=== PATIENT | female | born 1970 | race Caucasian/White ===

== ENCOUNTER 2016-08-13 14:44 | Inpatient (IN) | payer OTHER ==
--- NOTE | ~2016-08-13 | IDS ---
Interim Discharge Summary [facility] [address] [place]. [address] NAME: SHIRA CORDERO : 74 STATUS : ADM IN [facility]#: [id number] AGE: 45 ADM/REG DATE : 08/13/16 MR#: [id number] REPORT SERV DATE: 08/20/16 DICTATED BY: JR. BOB WILLIAM JOHN DATE: 08/20/16 REPORT STATUS : Draft TRANSCRIBED BY: MODL DATE: 08/20/16 ADMISSION DATE: 08/13/2016 DISCHARGE DATE: The patient was transferred to the floor on 08/15 after admission to the intensive care unit, therefore this summary covers the time period from 08/15 through 08/20. WORKING DIAGNOSES: 1. Pericardial effusion, status post pericardial window. Drain removed on 08/20. 2. Severe hypothyroidism with myxedema. 3. Systolic heart failure with an ejection fraction of 25% to 30% on transthoracic echocardiogram, intraoperative KACI showed normal function. 4. Acute on chronic respiratory failure on 2.5 L oxygen by nasal cannula. 5. Tobacco abuse. 6. Hirsutism. 7. Lice on admission. 8. Difficult social issues. OPERATIONS, PROCEDURES, AND TREATMENTS: Include, 1. Subxiphoid pericardial window with transesophageal echocardiogram by Dr. Gibson on 08/13. Transesophageal echo showed normal function with large posterior and lateral pericardial effusions. 2. Chest x-ray done 08/13 showed status post intubation with appropriate endotracheal tube position with internal jugular catheter on the left and continued cardiomegaly and perihilar edema with mild left basilar crater and right basilar atelectasis. 3. CT of the chest done 08/13 showed cardiomegaly with superimposed moderate to large pericardial effusion with asymmetric nodular and subtle patchy infiltrates in both upper and lower lobes suggesting asymmetric pulmonary edema versus asymmetric bilateral pneumonia. There is nonspecific hepatic steatosis. There was a 2.7 cm hypodense thickened lesion at the left adrenal gland suggestive of adrenal adenoma or adrenal myelolipoma. There is anasarca. There was enlarged main pulmonary artery measuring 3.[address] evidence of pulmonary arterial hypertension. There is diffuse beam hardening. 4. KUB done 08/14 showed a nasogastric tube in appropriate position. 5. Multiple followup chest x-rays. 6. CT of the abdomen and pelvis done 08/17 showed diffuse body wall edema, small amount of ascites, and minimal pleural effusions. The liver was enlarged at 24 cm in length. There was bilateral adrenal hypertrophy, right was 2.6 x 1.1 cm, left was 3.1 x 2.8 cm likely representing adenomas. There was no bowel obstruction. 7. Transthoracic echo done 08/17, which showed moderate left ventricular systolic function with an ejection fraction 25% to 30% with mild right ventricular systolic dysfunction. There was no significant valvular dysfunction. No previous study for comparison. CURRENT MEDICATIONS: Please see my daily progress note. CONSULTING PHYSICIAN: Dr. Gibson of Cardiology. Interim Discharge Summary [place] [id number] [place]. [address] NAME: SHIRA CORDERO : 74 STATUS : ADM IN [facility]#: [id number] AGE: 45 ADM/REG DATE : 08/13/16 MR#: [id number] REPORT SERV DATE: 08/20/16 DICTATED BY: JR. BOB WILLIAM JOHN DATE: 08/20/16 REPORT STATUS : Draft TRANSCRIBED BY: SHAYY DATE: 08/20/16 BRIEF SUMMARY OF HOSPITALIZATION: The patient is a 45-year-old female, transferred from [facility] on 08/13 after being found to have a large pericardial effusion, transferred for consideration of a pericardial window. The patient presented to [facility] with chief complaint of increased shortness of breath, hypoxia, hypertension. She was on CPAP, given Lasix and nitro paste, was seen by Cardiology. The patient has a known history of hypothyroidism, but had not taken her medications for over four years as she was unable to afford them. Upon transfer, the patient was diverted to the intensive care unit where she was on BiPAP, settings of 16/8, rate of 10, FiO2 40%. Heart rate 70, blood pressure 140/83, respiratory rate 16, temperature 97.9. The patient had cataracts bilaterally, right greater than the left. Lung had decreased breath sounds throughout. Heart sounds were muffled. She had massive edema and dry skin on her extremities. For complete details, please see Dr. Chary Ortiz's dictated consultation. DISCUSSION OF PROBLEM LIST: 1. Pericardial effusion-this is likely due to untreated hypothyroidism and possible systolic heart failure. She underwent a pericardial window by Dr. Gibson on 08/13. The drain was removed on 08/20 and the patient is ready for discharge from their point of view. 2. Severe hypothyroidism with myxedema. The patient was replaced initially with Cytomel. This has been transitioned to Synthroid in escalating doses. She is currently on 125 mcg orally per day. I would recommend continuing this dose and checking a thyroid- stimulating hormone in four weeks to assess for adequacy. 3. Systolic heart failure with ejection fraction 25%-30% seen on transthoracic echocardiogram. Intraoperative transesophageal echocardiogram noted normal function, therefore her true systolic function is difficult to transport specialist currently, which she has been started on lisinopril and is currently on 20 mg twice a day, also on Coreg and a 2 L fluid restriction. She has been getting diuresed 40 mg IV daily, which we will continue at this point as she continues to have massive edema and seems to be high risk for decompensation without inpatient diuresis. 4. As to the acute on chronic hypoxic respiratory failure, this is likely multifactorial. She does not have a history of smoking, however, is massively obese and likely has a restrictive lung disease from that, and in addition, she had a pericardial window and also has severe hypothyroidism and likely has some component of volume overload affecting her lungs. We will plan to wean her oxygen and check an exercise desaturation study. 5. As to hirsutism, CT of the abdomen and pelvis was done looking for adrenal hyperplasia, which was not demonstrated. This likely represents polycystic ovarian syndrome and might benefit from metformin at some point. 6. 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 She is from her and is living with her sister. Apparently, she sleeps on a chair in the kitchen. She has no insurance and no source of payment for any followup care. I have worked with the hospice case manager and she has applied for assistance. Obviously this makes discharge with oxygen difficult and/or impossible, therefore continued diuresis and respiratory optimization is critical. For today's exam, please see daily progress note and my partner will assume care of this patient in the morning. Interim Discharge Summary [place] [id number] [facility] [address] NAME: SHIRA CORDERO : 74 STATUS : ADM IN [facility]#: [id number] AGE: 45 ADM/REG DATE : 08/13/16 MR#: [id number] REPORT SERV DATE: 08/20/16 DICTATED BY: JR. BOB WILLIAM JOHN DATE: 08/20/16 REPORT STATUS : Draft TRANSCRIBED BY: SHAYY DATE: 08/20/16 WJF/SHAYY Sherif Bob Jr, MD / [id number] CC: Sherif Bob Jr, MD
--- NOTE | ~2016-08-13 | OP ---
Record Of Operation [facility] [address] [place]. [address] NAME: SHIRA CORDERO : 74 STATUS : ADM IN [facility]#: [id number] AGE: 45 ADM/REG DATE : 08/13/16 MR#: [id number] REPORT SERV DATE: 08/14/16 DICTATED BY: LEANDRO TIDWELL DATE: 08/13/16 REPORT STATUS : Draft TRANSCRIBED BY: MODL DATE: 08/13/16 DATE OF PROCEDURE: 08/13/2016 INDUSTRY SEGMENT SPECIALIST: Lopez Tidwell. PREOPERATIVE DIAGNOSES: 1. Pericardial effusion. 2. Early cardiac tamponade by echo. 3. Hypertension. 4. Hypothyroidism. POSTOPERATIVE DIAGNOSES: 1. Pericardial effusion. 2. Early cardiac tamponade by echo. 3. Hypertension. 4. Hypothyroidism. OPERATION PROCEDURE PERFORMED: 1. Subxiphoid pericardial window. 2. Transesophageal echo. COMPLICATIONS: None. ESTIMATED BLOOD LOSS: Minimal. SPECIMEN REMOVED: Pericardium and pericardial fluid, total of 610 mL of clear straw-colored pericardial fluid. TUBES AND DRAINS: A 24-Ugandan Bethel to the pericardial space. INTRAOPERATIVE FINDINGS: Fluid 610 mL. No blood. No staining of the pericardium. No studding of the pericardium. Totally normal appearing epicardial fat pad that could be seen through a very small pericardial incision. Transesophageal echo showed normal function with a large posterior and lateral pericardial effusion. INDICATIONS FOR PROCEDURE: Ms. Cordero is a 45-year-old, transferred from an outside facility, history of hypothyroidism and presented to the outside hospital in respiratory distress, was transferred on BiPAP, appeared to very in early signs of myxedema crisis, however, did not have hypotension. When I saw her, she was confused, unable to answer questions appropriately, but did have normal vital signs. Risks, benefits, and alternatives were discussed over the phone with her sister and she was taken to the operating room. DESCRIPTION OF PROCEDURE: The patient was brought to the operating room and placed supine on the operating room table. After satisfactory induction of general endotracheal anesthesia, a transesophageal echo probe was placed by the Anesthesia Service, which revealed the above findings. At this point, decision was made to attempt a subxiphoid window, and if unable to Record Of Operation [place] [id number] [facility] [place]. [address] NAME: SHIRA CORDERO : 74 STATUS : ADM IN PAT#: [id number] AGE: 45 ADM/REG DATE : 08/13/16 MR#: [id number] REPORT SERV DATE: 08/14/16 DICTATED BY: LEANDRO TIDWELL DATE: 08/13/16 REPORT STATUS : Draft TRANSCRIBED BY: SHAYY DATE: 08/13/16 clear the effusion, to go to a lateral approach. She was prepped and draped in the usual sterile fashion. A 6 cm incision was made over the xiphoid. Skin and subcutaneous tissues were divided. The fascia was opened in the midline over the xiphoid and the linea alba. A finger retractor was placed under the xiphoid and elevated. The chest fatty tissue was swept off the anterior-inferior surface of the pericardium until the pericardium was encountered. It was tense, somewhat bulging. A small incision was made in the pericardium and 610 mL of fluid was evacuated. A quarter-sized piece of pericardium was then excised and sent for pathologic analysis. The incision was widened such that a malleable retractor could be placed and then used to pull the diaphragmatic surface of the pericardium down. A 24-Ugandan Bethel was then placed into the pericardium, exteriorized and anchored. The linea alba was then closed. The fascia was then closed with a running #1 StrataFix, subcutaneous tissues closed using 2-0 Vicryl, and the skin closed using 3-0 Vicryl. Dermabond was applied and the patient was transferred to the CVICU in critical, stable condition, intubated. Cindy/SHAYY Leandro Tidwell MD / [id number] CC: Leandro Tidwell MD
--- NOTE | ~2016-08-13 | CN ---
Consultation Report [facility] [address] [place]. [address] NAME: SHIRA CORDERO : 74 STATUS : ADM IN PAT#: [id number] AGE: 45 ADM/REG DATE : 08/13/16 MR#: [id number] REPORT SERV DATE: 08/13/16 DICTATED BY: PORTIA ORTIZ DATE: 08/13/16 REPORT STATUS : Draft TRANSCRIBED BY: MODL DATE: 08/13/16 CONSULTATION DATE OF CONSULTATION: HISTORY OF PRESENT ILLNESS: This is a 45-year-old patient I was asked to see by Dr. Gibson initially for BiPAP management. Hospitalist Service was consulted for medical management but then the entire management of this patient was deferred to the Critical Care Service by the hospitalist. The patient apparently was transferred here from [facility] today after she was found to have a large pericardial effusion and is here currently for consideration of placement of a pericardial window. The patient presented to [facility] today with a chief complaint of increasing shortness of breath, was found to be hypoxic and hypertensive, started on CPAP, given Lasix and nitroglycerin paste. She was seen by Cardiology over at [facility] who after seeing her TSH felt that much of her issues may be related to her high TSH of 122. She has known history of thyroid issues; however, she has not seen a doctor for the last four years and has not been taking thyroid medication or any other kind of medication for several years now. She has had no nausea, vomiting, fevers, chills, abdominal pain. ALLERGIES: SHE HAS NO KNOWN DRUG ALLERGIES. MEDICATIONS: At home are none. On transfer to [facility], the patient is on Synthroid, vitamin B12, subcu Lovenox, Lasix, DuoNeb, levothyroxine 25 mcg orally. She is on lisinopril 10 mg orally and nicotine patch, nitroglycerin transdermal ointment, and oral Protonix, p.r.n. MiraLAX. PAST MEDICAL HISTORY: Significant for previous known history of hypertension. No known coronary artery disease. Fluid retention, CHF, obesity, hypothyroidism. There is no other known past medical history. SOCIAL HISTORY: The patient lives with her sister and her mother. The patient tells me she has three children, but we will need to confirm that with her sister. She has been smoking for many years, two packs a day and has not quit. FAMILY HISTORY: Her mother is still living and has COPD and diabetes mellitus. She is not aware of any health issues with her sister. REVIEW OF SYSTEMS: 12-point review of systems was done and pretty much is as per history of present illness. The patient states that she has not been gaining weight, in fact she has been losing weight. Somewhat difficult to assess that. There has been no problems with appetite, constipation, nausea, vomiting, bloody stools. The patient does have cataracts and has had difficulty seeing. Respiratory bull, she has had no productive cough or hemoptysis. Cardiovascular review of systems, no chest pain, no palpitations. She does admit to increased swelling of the legs, but no syncope. GI review of systems, no nausea, vomiting, diarrhea. No bloody Consultation Report [place] [id number] [facility] [place]. [address] NAME: SHIRA CORDERO : 74 STATUS : ADM IN LOCATED [facility]IN [facility]#: [id number] AGE: 45 ADM/REG DATE : 08/13/16 MR#: [id number] REPORT SERV DATE: 08/13/16 DICTATED BY: PORTIA ORTIZ DATE: 08/13/16 REPORT STATUS : Draft TRANSCRIBED BY: SHAYY DATE: 08/13/16 stools. review of systems is unremarkable. Skin; the patient denies any rashes but does complaint of dryness of the skin. Otherwise, a 12-point review of systems is unremarkable. PHYSICAL EXAMINATION: VITAL SIGNS: She is currently on BiPAP at settings of 16/8, rate of 10, FiO2 of 40%. Her heart rate is 70, blood pressure 140/83, and respiratory rate is 16 with a temp of 97.9. The skin is warm to touch. GENERAL: The patient is in no apparent distress. She is responsive. She has a BiPAP mask in place. SKIN: The skin is notable for very dry crusted skin on the lower extremities. She has intertrigo underneath both breasts, and left groin is worse than the right groin. Skin has a somewhat doughy texture to it. HEENT: Notable for cataracts bilaterally, right greater than left. Difficult to evaluate pupillary size. The one on the right is pretty dense. She has some hair loss notable for her scalp. Oral mucosa poor dentition. NECK: Large. JVD cannot be adequately evaluated. She is hirsute and has quite a bit of facial hair particularly on her chin. LUNGS: Coarse throughout decreased at the bases. CARDIAC: Heart sounds are difficult to hear, but could not detect any murmurs and the heart rate is regular. BREASTS: Symmetrical without masses. Intertrigo is noted. ABDOMEN: Obese, nondistended, nontender. Bowel sounds are diminished. There is no organosplenomegaly appreciated. Intertrigo as mentioned above. Whittington catheter is in place. RECTAL AND GENITAL: Deferred. EXTREMITIES: Lower extremities are notable for edema, extreme dryness, and scaling of the lower extremities bilaterally. Pulses are markedly diminished in the lower extremities. Upper extremities radial and brachial are at least 1+. NEUROLOGIC: Cranial nerves 2 through 12 are grossly intact. Motor and sensory are intact. Deep tendon reflexes could not be evaluated. Grossly, her neurologic exam is nonfocal. ABG done here showed a pH of 7.40, pCO2 of 45, PO2 of 81, bicarbonate of 27, O2 saturation of 95% on the above vent settings. Chest x-ray shows enlarged cardiac silhouette and mild pulmonary vascular congestion. Lab work from [facility] shows a white cell count of 5.4, hemoglobin of 10, hematocrit of 31, platelet count of 115. Sodium of 138, potassium of 3.8, chloride of 100, creatinine of 1.07, calcium of 9.3, bicarbonate of 26. Vitamin B12 was low at 170, iron is 23, TIBC is 294. Iron saturation is 8%. Ferritin is 1285. CK is 122. Glycosylated hemoglobin is 5.4, glucose is 108. LFTs are within normal limits. Lactic acid level is 1.7. TSH is 123. MCV is 99.7. Echocardiogram done at [facility] shows an ejection fraction of 54%, large pericardial effusion posteriorly 2.1 cm. ASSESSMENT AND PLAN: 1. This is a 45-year-old woman who has not been seen by a physician in last four years who presents to an outlying hospital with increasing shortness of breath, hypoxic respiratory failure, found to have a large pericardial effusion and profound hypothyroidism. The patient has been transferred here for placement of pericardial Consultation Report [address] [address] NAME: SHIRA CORDERO : 74 STATUS : ADM IN LOCATED [facility]IN [facility]#: [id number] AGE: 45 ADM/REG DATE : 08/13/16 MR#: [id number] REPORT SERV DATE: 08/13/16 DICTATED BY: PORTIA ORTIZ DATE: 08/13/16 REPORT STATUS : Draft TRANSCRIBED BY: SHAYY DATE: 08/13/16 window. We were asked initially to see her for BiPAP management and current BiPAP settings are adequate. More than likely, the patient will be intubated for the pericardial window. 2. Hypertension. We can continue the nitroglycerin paste, lisinopril, and maybe add p.r.n. hydralazine if needed. 3. Severe hypothyroidism. We will change the Synthroid to IV. We will need to check a free T4 and free T3, and may need to increase the dose of Synthroid and add thyroid. Also check a cortisol level. It appears that the patient is not diabetic and has not run a high glucose and glycosylated hemoglobin levels at [facility] was 5.4. 4. Nicotine abuse, status of COPD whether she has it or not is uncertain. She currently is on a nicotine patch and we will continue DuoNebs. 5. She has intertrigo. We will apply Misha cream, and InterDry were indicated. 6. Vitamin B12 deficiency. Continue B12 shots. 7. Thrombocytopenia and more than likely anemia of chronic disease. We will follow a heme test stools. 8. Anasarca more than likely multifactorial and most definitely secondary to poorly controlled thyroid function. 9. Obesity hypoventilation syndrome, probable obstructive sleep apnea. Continue BiPAP. 10.Deep vein thrombosis prophylaxis will be initially with SCDs. We will follow the platelet count closely. We will start subcu heparin or Arixtra once pericardial window is placed. 11.GI prophylaxis will be with Protonix. The patient is in critical condition and is at risk for further deterioration hemodynamically as well as respiratory and cardiac bull and will require frequent monitoring and vent changes once she is intubated. Total critical care time spent with this patient commenced at 7:10 p.m. and ended at 8:10 p.m. for a total of 60 minutes of critical care time. STEVEN/SHAYY Portia Ortiz M.D. / [id number] CC: Laendro Gibson MD
--- NOTE | ~2016-08-13 | DS ---
Discharge Summary [facility] [address] [place]. [address] NAME: SHIRA CORDERO : 74 STATUS : DIS IN PAT#: [id number] AGE: 45 ADM/REG DATE : 08/13/16 MR#: [id number] REPORT SERV DATE: 08/22/16 DICTATED BY: CORI ANGULO DATE: 08/21/16 REPORT STATUS : Draft TRANSCRIBED BY: MODL DATE: 08/21/16 ADMISSION DATE: 08/13/2016 DISCHARGE DATE: 08/21/2016 DISCHARGE DIAGNOSES: 1. Pericardial effusion status post drain and drain is removed. 2. Severe hypothyroidism with myxedema, started on the Synthroid 125 mcg once a day. 3. Tobacco abuse. 4. Morbid obesity. 5. Hypertension. 6. Uncontrolled hypothyroidism. 7. Social difficulty. 8. Severe left ventricular dysfunction at 25-30% ejection fraction with mild right ventricular dysfunction on the echocardiogram. HISTORY OF PRESENT ILLNESS: This is a 45-year-old female patient, who transferred from [facility] on 08/13/2016 after being found to have large pericardial effusion in order to obtain a Cardiac Risk Surgery consultation. Please see dictated H and P. HOSPITAL COURSE: Please see dictated interim discharge summary done by Dr. Bob. I am taking care of this patient on the day of discharge. She had a surgical pericardial effusion removal and the drain is also removed. She was put on a diuretic treatment. She was found to have severe hypothyroidism with myxedema. Her treatment of Synthroid was initiated from this hospitalization, currently dose is 125 mcg once a day. She does also have systolic heart failure on the echocardiogram. She was put on the ROZINA inhibitor and beta jan and diuretic treatment for this heart failure in light of myxedema. Overall the patient improved and remained in stable condition stabilized. Maximized inpatient benefit. Main issue is myxedema and also her social issue. So, the case technician is deeply involved, to be taken care of her discharge medication and followup plan and also [facility] was arranged. DISCHARGE MEDICATIONS: 1. We will continue Synthroid 125 mcg once a day. 2. Lisinopril 20 mg once a day. 3. Coreg 6.25 mg twice a day. 4. Potassium 40 mEq once a day. Again Synthroid was started on this admission. FOLLOW-UP: The patient is to follow up with primary care physician. DISPOSITION: The patient is discharged to home. Discharge Summary [address] [address] NAME: SHIRA CORDERO : 74 STATUS : DIS IN PAT#: [id number] AGE: 45 ADM/REG DATE : 08/13/16 MR#: [id number] REPORT SERV DATE: 08/22/16 DICTATED BY: CORI ANGULO DATE: 08/21/16 REPORT STATUS : Draft TRANSCRIBED BY: SHAYY DATE: 08/21/16 TIME SPENT: More than 30 minutes. DICTATED BY: Olga Galeano/SHAYY Cori Angulo M.D. / [id number] CC: Sherif Bob Jr, MD
--- NOTE | ~2016-08-13 | HP ---
History And Physical [place] [id number] [facility] [place]. [address] NAME: SHIRA CORDERO : 74 STATUS : ADM IN PAT#: [id number] AGE: 45 ADM/REG DATE : 08/13/16 MR#: [id number] REPORT SERV DATE: 08/14/16 DICTATED BY: TOMI FIELD DATE: 08/13/16 REPORT STATUS : Draft TRANSCRIBED BY: MODL DATE: 08/13/16 DATE OF ADMISSION: 08/13/2016 REASON FOR ADMISSION: Pericardial effusion. HISTORY OF PRESENT ILLNESS: This is a 45-year-old, morbidly obese, female who has a history of high blood pressure and likely obstructive sleep apnea, but has not followed up with primary care provider in over four years. She lives at home with her mother and her sister, but says that she does not leave the house very much. She was brought to the emergency room at [facility] on 08/12/2016 with complaints of shortness of breath. She was found to have an elevated BNP with O2 saturations in the 50s. She was started on BiPAP and chest x-ray showed, what appeared to be, a very large heart. She was initially started on treatment for CHF exacerbation, but echocardiogram earlier today showed a normal ejection fraction with a large circumferential pericardial effusion, left atrial collapse concerning for early signs of tamponade, although her heart rate and blood pressure were stable. She was started on BiPAP intermittently, which per the nurse at [facility], she was requiring throughout most of the day. I spoke with Dr. Ayers, bench worker helper at [facility], regarding the case and he asked for cardiothoracic evaluation for pericardial window. The patient was transferred here and just arrived to the CV ICU. She was transferred on 4 L with O2 sats in the low to mid 90s. She has no complaints of shortness of breath or chest pain at this time. It is difficult to determine the baseline mentation of the patient although she seem to be alert and oriented x3. It is difficult to understand whether she ascertains everything that is going on with her. Currently there is no family present, but her vital signs are stable and she has no complaints. PAST MEDICAL HISTORY: High blood pressure, morbid obesity, obstructive sleep apnea, hypothyroidism, iron deficiency anemia, vitamin B12 deficiency, thrombocytopenia, and bilateral cataracts. PAST SURGICAL HISTORY: Denies any major surgeries. FAMILY HISTORY: Family history of COPD, colon cancer on her mother side, lung cancer on her father's side. SOCIAL HISTORY: About a quarter-pack per day for over 20 years. No alcohol abuse or use of illicit drugs. She says she lives at home with her mother and her sister, but she stays in her room most of the time. ALLERGIES: NO KNOWN DRUG ALLERGIES. HOME MEDICATIONS: She reports no home medications. REVIEW OF SYSTEMS: A 10-point review of systems was obtained, is negative other than HPI. PHYSICAL EXAMINATION: History And Physical [address] [place]. [address] NAME: SHIRA CORDERO : 74 STATUS : ADM IN [facility]#: [id number] AGE: 45 ADM/REG DATE : 08/13/16 MR#: [id number] REPORT SERV DATE: 08/14/16 DICTATED BY: TOMI FIELD DATE: 08/13/16 REPORT STATUS : Draft TRANSCRIBED BY: SHAYY DATE: 08/13/16 VITAL SIGNS: Temperature 98.8, heart rate 75, blood pressure 140/82, respiratory rate 20, and O2 saturation 95% on 4 L. White blood cell count 5.4, hemoglobin 10.4, hematocrit 32, platelets 115. Sodium 138, potassium 3.8, chloride 100, bicarbonate 26, BUN 10, creatinine 1.1, glucose 110. TSH 123. GENERAL: Obese, female, in no acute distress. Appears to be rather unkept. NEURO: Alert and oriented x3. Equal strength bilaterally. Pupils are round and reactive to light and accommodation. HEENT: Head, normocephalic and atraumatic. Sclerae clear. Lens cloudy, worse on the right. Facial hair on chin. CARDIAC: S1, S2 with no murmurs, rubs, or gallops. LUNGS: Coarse bilaterally with expiratory wheezes. Diminished bases. ABDOMEN: Obese, soft, nontender with active bowel sounds. EXTREMITIES: Free of cyanosis or clubbing. 1 to 2+ bilateral lower extremity edema. SKIN: Dry, scaly with decreased turgor. Multiple areas that appear to be dirty with dry, dirty scaling bilateral lower extremities. ASSESSMENT AND PLAN: This is a 45-year-old, morbidly obese, female who lives at home, but rarely leaves her house. She has not seen a primary care provider in over four years. She was admitted to [facility] yesterday with shortness of breath and elevated BNP. Echocardiogram showed a large circumferential pericardial effusion with early signs of tamponade and normal ejection fraction with stable vital signs. The patient was scheduled for a pericardial window and transferred to [facility] this evening. I discussed the risks and benefits of pericardial window with the patient and she is agreeable to proceed. It is difficult to ascertain whether or not she understands everything in regard to her diagnosis, but she is agreeable to undergo the procedure at this time. Her family apparently is en route to the hospital, but they are currently not here. We will go ahead and admit her as an inpatient for pericardial window and ask Pulmonary to see her for what was acute pulmonary insufficiency at [facility] and obstructive sleep apnea BiPAP management. We will also ask the hospitalist to see her for medical management of hypothyroidism and other medical problems for which she has not received care over the past several years. WOLF/SHAYY Tomi Field NP / [id number] CC: Leandro Gibson MD
[2016-08-13 19:29] LABS: BE (BASE EXCESS) 2.8 MEQ/L (0 +/- 2.5); CARBOXYHEMOGLOBIN 0.4 % (0-3); HCO3 (ACTUAL BICARBONATE) 27.9 MEQ/L (23-27); HEMOBLOGIN CONTENT 10.1 G/DL (12-16); INSTRUMENT SERIAL # 11843; METHEMOGLOBIN 0.3 % (0-3); O2 CONTENT 13.5 VOL% (18-24); PCO2 (CO2 TENSION) 45 MMHG (35-45); PO2 (O2 TENSION) 82 MMHG (79-93); SAMPLE Arterial; pH 7.41 (7.37-7.43)
[2016-08-13 19:30] LABS: ALLENS TEST Pos; BIPAP 16/8 cm.H2O; OPERATOR ID 23712
[2016-08-13 20:53] LABS: HEMATOCRIT 28.2 % (36.0-48.0); HEMOGLOBIN 9.2 g/dL (12.0-16.0); MEAN CORPUS HGB CONC 32.6 g/dL (32.0-36.0); MEAN CORPUSCULAR HEMOGLOB 32.5 pg (26.0-34.0); MEAN CORPUSCULAR VOLUME 99.6 fL (80-100); MEAN PLATELET VOLUME 9.9 fL (9.2-13.0); PLATELET COUNT 113 10/3/uL (150-400); RBC DISTRIBUTION WIDTH 17.3 % (12.0-16.0); RED CELL COUNT 2.83 10/6/uL (4.0-5.6); WHITE BLOOD CELLS 4.6 10/3/uL (4.5-10.5)
[2016-08-13 20:55] LABS: MANUAL DIFF YES %
[2016-08-13 21:04] LABS: INTERNATIONAL NORMAL RATI 1.1 UNITS (-); PROTIME (NOT ORD) 14.5 SEC (12.0-14.5)
[2016-08-13 21:15] LABS: BAND NEUTROPHILS 19 %; LYMPHOCYTES 5 %; LYMPHOCYTES ABSOLUTE (CALC) 0.23 10/3/uL (0.67-4.30); MONOCYTES 2 %; MONOCYTES ABSOLUTE (CALC) 0.09 10/3/uL (0.21-1.20); NEUTROPHILS ABSOLUTE (CALC) 4.28 10/3/uL (2.02-8.40); PLATELET ESTIMATE SLT DEC (ADEQUATE); SEGMENTED NEUTROPHIL (0) 74 %; TOTAL NUCLEATED CELLS 100
[2016-08-13 21:16] LABS: ANISOCYTOSIS 1+ (5-10/OIF) (0-5/OIF); MACROCYTES 1+ (5-10/OIF) (0-5/OIF)
[2016-08-13 21:29] LABS: GLYCOHEMOGLOBIN (HbA1c) 5.2 % (4.7-6.1)
[2016-08-13 21:59] LABS: A/G RATIO 0.9 (0.7-1.9); ALBUMIN 3.5 G/DL (3.5-5.0); ALKALINE PHOSPHATASE 75 U/L (45-117); BUN (BLOOD UREA NITROGEN) 10 MG/DL (6-23); CALCIUM, SERUM 8.7 MG/DL (8.5-10.4); CHLORIDE, SERUM 101 MMOL/L (96-112); CK-MB 1.2 NG/ML; CO2 (CARBON DIOXIDE) 32 MMOL/L (24-34); CPK 132 U/L (0-200); CREATININE 0.94 MG/DL (0.55-1.02); DIRECT BILIRUBIN 0.1 MG/DL (0.0-0.4); FERRITIN 1129 NG/ML (8-252); FOLATE 7.2 NG/ML (>5.2); FREE T4 0.19 NG/DL (0.76-1.46); GFR AFRICAN AMERICAN 86 ML/MIN (>=60); GFR NON AFRICAN AMERICAN 74 ML/MIN (>=60); GLOBULIN 3.7 G/DL (2.5-4.1); GLUCOSE, SERUM 84 MG/DL (60-99); INDIRECT BILIRUBIN(NOT ORDER) 0.3 MG/DL (0.1-0.9); IRON BINDING CAPACITY 242 MCG/DL (225-410); IRON, SERUM 26 MCG/DL (35-150); POTASSIUM, SERUM 3.3 MMOL/L (3.5-5.3); SGOT(AST) 27 U/L (5-40); SGPT(ALT) 17 U/L (5-65); SODIUM, SERUM 139 MMOL/L (135-148); TOTAL BILIRUBIN 0.4 MG/DL (0-1.2); TOTAL PROTEIN 7.2 G/DL (6.0-8.5); TROPONIN I 0.04 NG/ML (<0.05)
[2016-08-13 23:04] LABS: B NATRIURETIC PEPTIDE (BNP) 132.6 PG/ML (< 100.0)
[2016-08-13 23:56] LABS: BE (BASE EXCESS) 6.5 MEQ/L (0 +/- 2.5); CARBOXYHEMOGLOBIN 0.3 % (0-3); HCO3 (ACTUAL BICARBONATE) 29.5 MEQ/L (23-27); HEMOBLOGIN CONTENT 9.7 G/DL (12-16); INSTRUMENT SERIAL # 11843; METHEMOGLOBIN 0.6 % (0-3); O2 CONTENT 14.6 VOL% (18-24); OPERATOR ID 23712; PCO2 (CO2 TENSION) 36 MMHG (35-45); PO2 (O2 TENSION) 423 MMHG (79-93); SAMPLE Arterial; pH 7.53 (7.37-7.43)
[2016-08-13 23:57] LABS: MODE CMV; TIDAL VOLUME 600 ML
[2016-08-14 00:35] LABS: BASOPHILS 0.2 %; BASOPHILS ABSOLUTE 0.01 10/3/uL (0.0-0.16); EOSINOPHILS 0.5 %; EOSINOPHILS ABSOLUTE 0.02 10/3/uL (0.0-0.53); HEMATOCRIT 26.6 % (36.0-48.0); HEMOGLOBIN 8.8 g/dL (12.0-16.0); IMMATURE GRANULOCYTES ABSOLUTE 0.04 10/3/uL (0.0-0.11); LYMPHOCYTES 18.9 %; LYMPHOCYTES ABSOLUTE 0.77 10/3/uL (0.67-4.30); MANUAL DIFF NO %; MEAN CORPUS HGB CONC 33.1 g/dL (32.0-36.0); MEAN CORPUSCULAR HEMOGLOB 32.7 pg (26.0-34.0); MEAN CORPUSCULAR VOLUME 98.9 fL (80-100); MEAN PLATELET VOLUME 10.3 fL (9.2-13.0); MONOCYTES 2.7 %; MONOCYTES ABSOLUTE 0.11 10/3/uL (0.21-1.20); NEUTROPHILS 76.7 %; NEUTROPHILS ABSOLUTE 3.12 10/3/uL (2.02-8.40); PLATELET COUNT 121 10/3/uL (150-400); RBC DISTRIBUTION WIDTH 17.1 % (12.0-16.0); RED CELL COUNT 2.69 10/6/uL (4.0-5.6); WHITE BLOOD CELLS 4.1 10/3/uL (4.5-10.5)
[2016-08-14 00:47] LABS: BUN (BLOOD UREA NITROGEN) 10 MG/DL (6-23); CALCIUM, SERUM 8.2 MG/DL (8.5-10.4); CHLORIDE, SERUM 104 MMOL/L (96-112); CO2 (CARBON DIOXIDE) 32 MMOL/L (24-34); CREATININE 1.02 MG/DL (0.55-1.02); GFR AFRICAN AMERICAN 78 ML/MIN (>=60); GFR NON AFRICAN AMERICAN 67 ML/MIN (>=60); GLUCOSE, SERUM 83 MG/DL (60-99); POTASSIUM, SERUM 3.4 MMOL/L (3.5-5.3); SODIUM, SERUM 142 MMOL/L (135-148)
[2016-08-14 04:28] LABS: BE (BASE EXCESS) 4.4 MEQ/L (0 +/- 2.5); CARBOXYHEMOGLOBIN 0.2 % (0-3); HEMOBLOGIN CONTENT 11.4 G/DL (12-16); INSTRUMENT SERIAL # 11843; METHEMOGLOBIN 0.4 % (0-3); PCO2 (CO2 TENSION) 43 MMHG (35-45); PO2 (O2 TENSION) 71 MMHG (79-93); pH 7.44 (7.37-7.43)
[2016-08-14 04:29] LABS: MODE CMV; OPERATOR ID 23712; SAMPLE Arterial; TIDAL VOLUME 450 ML
[2016-08-14 04:50] LABS: BUN (BLOOD UREA NITROGEN) 10 MG/DL (6-23); CALCIUM, SERUM 8.3 MG/DL (8.5-10.4); CHLORIDE, SERUM 102 MMOL/L (96-112); CO2 (CARBON DIOXIDE) 31 MMOL/L (24-34); CPK 128 U/L (0-200); CREATININE 0.83 MG/DL (0.55-1.02); GFR AFRICAN AMERICAN 100 ML/MIN (>=60); GFR NON AFRICAN AMERICAN 86 ML/MIN (>=60); PHOSPHORUS, SERUM 2.4 MG/DL (2.5-4.5); POTASSIUM, SERUM 3.7 MMOL/L (3.5-5.3); SODIUM, SERUM 138 MMOL/L (135-148); TROPONIN I 0.04 NG/ML (<0.05)
[2016-08-14 04:56] LABS: GLUCOSE, SERUM 108 MG/DL (60-99)
[2016-08-14 19:48] LABS: TROPONIN I 0.05 NG/ML (<0.05)
[2016-08-15 01:45] LABS: BE (BASE EXCESS) 6.7 MEQ/L (0 +/- 2.5); BIPAP 16/8 cm.H2O; CARBOXYHEMOGLOBIN 0.1 % (0-3); HCO3 (ACTUAL BICARBONATE) 32.4 MEQ/L (23-27); HEMOBLOGIN CONTENT 11.3 G/DL (12-16); INSTRUMENT SERIAL # 11843; METHEMOGLOBIN 0.4 % (0-3); O2 CONTENT 14.4 VOL% (18-24); OPERATOR ID 32193; PCO2 (CO2 TENSION) 52 MMHG (35-45); PO2 (O2 TENSION) 66 MMHG (79-93); SAMPLE Arterial; pH 7.42 (7.37-7.43)
[2016-08-15 03:41] LABS: BASOPHILS 0.2 %; BASOPHILS ABSOLUTE 0.01 10/3/uL (0.0-0.16); EOSINOPHILS 0 %; HEMATOCRIT 30.7 % (36.0-48.0); HEMOGLOBIN 10.2 g/dL (12.0-16.0); IMMATURE GRANULOCYTES 0.4 %; IMMATURE GRANULOCYTES ABSOLUTE 0.02 10/3/uL (0.0-0.11); LYMPHOCYTES ABSOLUTE 0.76 10/3/uL (0.67-4.30); MANUAL DIFF NO %; MEAN CORPUS HGB CONC 33.2 g/dL (32.0-36.0); MEAN CORPUSCULAR HEMOGLOB 32.8 pg (26.0-34.0); MEAN CORPUSCULAR VOLUME 98.7 fL (80-100); MEAN PLATELET VOLUME 10.1 fL (9.2-13.0); MONOCYTES 4.1 %; MONOCYTES ABSOLUTE 0.22 10/3/uL (0.21-1.20); NEUTROPHILS 81.3 %; NEUTROPHILS ABSOLUTE 4.41 10/3/uL (2.02-8.40); PLATELET COUNT 127 10/3/uL (150-400); RBC DISTRIBUTION WIDTH 17.2 % (12.0-16.0); RED CELL COUNT 3.11 10/6/uL (4.0-5.6); WHITE BLOOD CELLS 5.4 10/3/uL (4.5-10.5)
[2016-08-15 04:00] LABS: A/G RATIO 0.8 (0.7-1.9); ALBUMIN 2.9 G/DL (3.5-5.0); BUN (BLOOD UREA NITROGEN) 9 MG/DL (6-23); CALCIUM, SERUM 8.5 MG/DL (8.5-10.4); CHLORIDE, SERUM 104 MMOL/L (96-112); CO2 (CARBON DIOXIDE) 33 MMOL/L (24-34); CREATININE 0.91 MG/DL (0.55-1.02); GFR AFRICAN AMERICAN 90 ML/MIN (>=60); GFR NON AFRICAN AMERICAN 77 ML/MIN (>=60); GLOBULIN 3.8 G/DL (2.5-4.1); GLUCOSE, SERUM 103 MG/DL (60-99); POTASSIUM, SERUM 3.4 MMOL/L (3.5-5.3); SGOT(AST) 21 U/L (5-40); SGPT(ALT) 10 U/L (5-65); SODIUM, SERUM 142 MMOL/L (135-148); TOTAL BILIRUBIN 0.3 MG/DL (0-1.2); TOTAL PROTEIN 6.7 G/DL (6.0-8.5)
[2016-08-15 04:02] LABS: ALKALINE PHOSPHATASE 63 U/L (45-117)
[2016-08-16 05:14] LABS: BASOPHILS 0.2 %; BASOPHILS ABSOLUTE 0.01 10/3/uL (0.0-0.16); EOSINOPHILS 0.2 %; EOSINOPHILS ABSOLUTE 0.01 10/3/uL (0.0-0.53); HEMOGLOBIN 10.4 g/dL (12.0-16.0); IMMATURE GRANULOCYTES 0.3 %; IMMATURE GRANULOCYTES ABSOLUTE 0.02 10/3/uL (0.0-0.11); LYMPHOCYTES 21.8 %; LYMPHOCYTES ABSOLUTE 1.38 10/3/uL (0.67-4.30); MEAN CORPUS HGB CONC 33.5 g/dL (32.0-36.0); MEAN CORPUSCULAR HEMOGLOB 33.4 pg (26.0-34.0); MEAN CORPUSCULAR VOLUME 99.7 fL (80-100); MEAN PLATELET VOLUME 10.2 fL (9.2-13.0); MONOCYTES 5.7 %; MONOCYTES ABSOLUTE 0.36 10/3/uL (0.21-1.20); NEUTROPHILS 71.8 %; NEUTROPHILS ABSOLUTE 4.56 10/3/uL (2.02-8.40); PLATELET COUNT 117 10/3/uL (150-400); RBC DISTRIBUTION WIDTH 17.5 % (12.0-16.0); RED CELL COUNT 3.11 10/6/uL (4.0-5.6); WHITE BLOOD CELLS 6.3 10/3/uL (4.5-10.5)
[2016-08-16 05:15] LABS: MANUAL DIFF NO %
[2016-08-16 05:40] LABS: A/G RATIO 0.8 (0.7-1.9); ALBUMIN 3.1 G/DL (3.5-5.0); ALKALINE PHOSPHATASE 65 U/L (45-117); BUN (BLOOD UREA NITROGEN) 11 MG/DL (6-23); CALCIUM, SERUM 8.8 MG/DL (8.5-10.4); CHLORIDE, SERUM 103 MMOL/L (96-112); CO2 (CARBON DIOXIDE) 35 MMOL/L (24-34); CREATININE 0.93 MG/DL (0.55-1.02); GFR AFRICAN AMERICAN 87 ML/MIN (>=60); GFR NON AFRICAN AMERICAN 75 ML/MIN (>=60); GLOBULIN 4.1 G/DL (2.5-4.1); GLUCOSE, SERUM 92 MG/DL (60-99); POTASSIUM, SERUM 3.8 MMOL/L (3.5-5.3); SGOT(AST) 14 U/L (5-40); SGPT(ALT) 11 U/L (5-65); SODIUM, SERUM 142 MMOL/L (135-148); TOTAL BILIRUBIN 0.5 MG/DL (0-1.2); TOTAL PROTEIN 7.2 G/DL (6.0-8.5)
[2016-08-17 06:33] LABS: BASOPHILS 0.3 %; BASOPHILS ABSOLUTE 0.02 10/3/uL (0.0-0.16); EOSINOPHILS 0.5 %; EOSINOPHILS ABSOLUTE 0.03 10/3/uL (0.0-0.53); HEMATOCRIT 30.7 % (36.0-48.0); IMMATURE GRANULOCYTES 0.7 %; IMMATURE GRANULOCYTES ABSOLUTE 0.04 10/3/uL (0.0-0.11); LYMPHOCYTES 26.4 %; LYMPHOCYTES ABSOLUTE 1.57 10/3/uL (0.67-4.30); MEAN CORPUS HGB CONC 32.6 g/dL (32.0-36.0); MEAN CORPUSCULAR HEMOGLOB 32.6 pg (26.0-34.0); MEAN PLATELET VOLUME 10.2 fL (9.2-13.0); NEUTROPHILS 67.1 %; NEUTROPHILS ABSOLUTE 3.99 10/3/uL (2.02-8.40); PLATELET COUNT 143 10/3/uL (150-400); RBC DISTRIBUTION WIDTH 17.2 % (12.0-16.0); RED CELL COUNT 3.07 10/6/uL (4.0-5.6)
[2016-08-17 06:34] LABS: MANUAL DIFF NO %
[2016-08-17 06:41] LABS: BUN (BLOOD UREA NITROGEN) 11 MG/DL (6-23); CALCIUM, SERUM 8.8 MG/DL (8.5-10.4); CHLORIDE, SERUM 101 MMOL/L (96-112); CO2 (CARBON DIOXIDE) 35 MMOL/L (24-34); CREATININE 0.91 MG/DL (0.55-1.02); GFR AFRICAN AMERICAN 90 ML/MIN (>=60); GFR NON AFRICAN AMERICAN 77 ML/MIN (>=60); GLUCOSE, SERUM 88 MG/DL (60-99); POTASSIUM, SERUM 3.7 MMOL/L (3.5-5.3); SODIUM, SERUM 142 MMOL/L (135-148)
[2016-08-18 05:50] LABS: BUN (BLOOD UREA NITROGEN) 12 MG/DL (6-23); CALCIUM, SERUM 9.2 MG/DL (8.5-10.4); CHLORIDE, SERUM 101 MMOL/L (96-112); CO2 (CARBON DIOXIDE) 37 MMOL/L (24-34); CREATININE 0.92 MG/DL (0.55-1.02); GFR AFRICAN AMERICAN 88 ML/MIN (>=60); GFR NON AFRICAN AMERICAN 76 ML/MIN (>=60); GLUCOSE, SERUM 93 MG/DL (60-99); POTASSIUM, SERUM 3.5 MMOL/L (3.5-5.3); SODIUM, SERUM 141 MMOL/L (135-148)
[2016-08-19 05:28] LABS: BASOPHILS 0.1 %; BASOPHILS ABSOLUTE 0.01 10/3/uL (0.0-0.16); EOSINOPHILS 0.7 %; EOSINOPHILS ABSOLUTE 0.05 10/3/uL (0.0-0.53); HEMATOCRIT 30.1 % (36.0-48.0); HEMOGLOBIN 9.8 g/dL (12.0-16.0); IMMATURE GRANULOCYTES ABSOLUTE 0.08 10/3/uL (0.0-0.11); LYMPHOCYTES 20.9 %; MEAN CORPUS HGB CONC 32.6 g/dL (32.0-36.0); MEAN CORPUSCULAR HEMOGLOB 32.1 pg (26.0-34.0); MEAN CORPUSCULAR VOLUME 98.7 fL (80-100); MEAN PLATELET VOLUME 9.7 fL (9.2-13.0); MONOCYTES ABSOLUTE 0.46 10/3/uL (0.21-1.20); NEUTROPHILS 71.3 %; NEUTROPHILS ABSOLUTE 5.47 10/3/uL (2.02-8.40); RBC DISTRIBUTION WIDTH 17.4 % (12.0-16.0); RED CELL COUNT 3.05 10/6/uL (4.0-5.6); WHITE BLOOD CELLS 7.7 10/3/uL (4.5-10.5)
[2016-08-19 05:29] LABS: MANUAL DIFF NO %; PLATELET COUNT 251 10/3/uL (150-400)
[2016-08-19 05:40] LABS: BUN (BLOOD UREA NITROGEN) 13 MG/DL (6-23); CALCIUM, SERUM 9.1 MG/DL (8.5-10.4); CHLORIDE, SERUM 100 MMOL/L (96-112); CHOL/HDL RATIO(NOT ORDER) 6.5 (0-5); CHOLESTEROL 182 MG/DL (< 200); CO2 (CARBON DIOXIDE) 33 MMOL/L (24-34); CREATININE 0.78 MG/DL (0.55-1.02); GFR AFRICAN AMERICAN 108 ML/MIN (>=60); GFR NON AFRICAN AMERICAN 93 ML/MIN (>=60); GLUCOSE, SERUM 95 MG/DL (60-99); HDL CHOLESTEROL 28 MG/DL (> 49); LDL CHOLESTEROL 111 MG/DL (< 130); NON-HDL CHOLESTEROL 154 MG/DL (< 160); POTASSIUM, SERUM 3.6 MMOL/L (3.5-5.3); SODIUM, SERUM 140 MMOL/L (135-148); TRIGLYCERIDE 216 MG/DL (< 150)
[2016-08-20 05:51] LABS: BUN (BLOOD UREA NITROGEN) 19 MG/DL (6-23); CALCIUM, SERUM 9.8 MG/DL (8.5-10.4); CHLORIDE, SERUM 101 MMOL/L (96-112); CO2 (CARBON DIOXIDE) 34 MMOL/L (24-34); CREATININE 0.83 MG/DL (0.55-1.02); GFR AFRICAN AMERICAN 100 ML/MIN (>=60); GFR NON AFRICAN AMERICAN 86 ML/MIN (>=60); GLUCOSE, SERUM 91 MG/DL (60-99); POTASSIUM, SERUM 3.7 MMOL/L (3.5-5.3); SODIUM, SERUM 136 MMOL/L (135-148)
[2016-08-21] MEDS ORDERED: PRIN20 PO (13:58)
[2016-08-21] MEDS ORDERED: SYN125 PO (13:58)
[2016-08-21] MEDS ORDERED: L40 PO (13:59)
[2016-08-21] MEDS ORDERED: KDUR20 PO (13:59)
[2016-08-21] MEDS ORDERED: COREG6 PO (14:00)
== END 2016-08-21 17:40 | disposition home or self-care (01) | DRG 270 ==
LOC: SDC/OF 14:44 → 5NO 15:52 → SDC/OF 16:58 → CVICU 17:37 → 5NO 08-15 12:06
PROVIDERS: Internal Medicine; Internal Medicine Critical Care Medicine; Internal Medicine Pulmonary Disease; Nurse Practitioner Family; Thoracic Surgery (Cardiothoracic Vascular Surgery)
PROC: 0W9D00Z Drainage of Pericardial Cavity with Drainage Device, Open Approach (ICD-10-PCS; principal; 2016-08-13 14:45)
DX: I31.3 Pericardial effusion (noninflammatory) (principal); J96.01 Acute respiratory failure with hypoxia; I31.4 Cardiac tamponade; Z68.41 Body mass index [BMI] 40.0-44.9, adult; E66.01 Morbid (severe) obesity due to excess calories; D69.6 Thrombocytopenia, unspecified; I10 Essential (primary) hypertension; G47.33 Obstructive sleep apnea (adult) (pediatric); E03.9 Hypothyroidism, unspecified; Z80.0 Family history of malignant neoplasm of digestive organs; Z80.1 Family history of malignant neoplasm of trachea, bronchus and lung; Z82.5 Family history of asthma and other chronic lower respiratory diseases; Z79.899 Other long term (current) drug therapy; F17.210 Nicotine dependence, cigarettes, uncomplicated; L30.4 Erythema intertrigo; E53.8 Deficiency of other specified B group vitamins
CPT/HCPCS: 31720; 36600; 71010; 71020; 71250; 74000; 74177; 80048; 80053; 80061; 82248; 82533; 82550; 82553; 82607; 82728; 82746; 82805; 82962; 83036; 83540; 83550; 83735; 83880; 84100; 84439; 84443; 84484; 85025; 85610; 85730; 87015; 87040; 87070; 87075; 87102; 87116; 87205; 87641; 88112; 88305; 93005; 93306; 94002; 94003; 94640; 94660; 94667; 94668; 94770; 97110-GP; 97116-GP; 97162-GP; A9270-GY; C9113; J0330; J0690; J1940; J2250; J2370; J3010; Q9967